=== PATIENT | male | born 1975 | race Caucasian/White ===

== ENCOUNTER 2017-05-06 16:53 | Emergency (ER) | payer BC ==
[2017-05-06] MEDS ORDERED: MORPHINE IV ONE ×2 (17:03→18:08)
[2017-05-06] MEDS ORDERED: ZOFRAN IV ONE (17:04)
[2017-05-06 17:39] LABS: Hematocrit 44.3 % (35.5-45.6); Hemoglobin 15.1 gm/dl (11.8-15.2); Mean Corpuscular HGB Conc 34 % (32-34); Mean Corpuscular Hemoglobin 37 pg (28-32); Mean Corpuscular Volume 110 fl (84-94); Red Blood Count 4.03 M/mm3 (3.65-5.03); Red Cell Distribution Width 14.3 % (13.2-15.2)
[2017-05-06 18:03] LABS: Alanine Aminotransferase 34 units/L (7-56); Albumin 3.5 g/dL (3.9-5); BUN/Creatinine Ratio 34; Blood Urea Nitrogen 17 mg/dL (9-20); Calcium 8.1 mg/dL (8.4-10.2); Hemolysis Index 56
[2017-05-06 18:51] LABS: Basophils % (Manual) 0 % (0.0-1.8); Total Cells Counted 100
[2017-05-06 18:52] LABS: Anisocytosis 1+; Macrocytosis Few; Ovalocytes Rare; Platelet Estimate Appears Decreased
--- NOTE | 2017-05-06 19:05 | Cat Scan Report ---
FINAL REPORT EXAM: CT ABDOMEN PELVIS W CON HISTORY: r/o appy, pain TECHNIQUE: CT examination of the ABDOMEN after IV contrast CT examination of the PELVIS after IV contrast PRIORS: None. FINDINGS: Diffusely nodular liver capsule may be secondary to cirrhosis. No CT evidence of focal liver lesion although the superior liver dome is not included in these images. There are prominent esophageal varices. There is also prominence of the portal vein and evidence of varices in the gastric lesser sac region. There is recanalization of the umbilical vein. The spleen is enlarged. These findings are also compatible with cirrhosis and may reflect portal hypertension. Normal-appearing gallbladder, adrenals, and pancreas. Intact normal caliber abdominal aorta and IVC. Normal-appearing kidneys and ureters. Very small fat containing umbilical hernia. No small bowel distention in the abdomen and pelvis. There is minimal prominence of mural thickness in the stomach and small bowel diffusely. This may be secondary to mild edema. No definite anasarca. Trace ascites adjacent to the gallbladder fossa. Differential includes pericholecystic fluid from inflammatory change. No pelvic free fluid. Normal-appearing urinary bladder, prostate, seminal vesicles, and rectum. Minimal sigmoid diverticulosis without acute inflammation. No gross ascites, free air, or colonic distention. Normal-appearing cecum and terminal ileum. Small diverticulum in the anterior cecum. Appendix not definitively manifest. No pericecal inflammation. Slight degenerative change in the regional skeleton. Limbus vertebral body at the anterosuperior corner of L5, likely developmental variation. The differential includes remote trauma. IMPRESSION: Findings suggestive of cirrhosis include nodular liver capsule, gastric varices, esophageal varices, recanalization of the umbilical vein, and splenomegaly Trace fluid adjacent the gallbladder may be minimal ascites. The differential includes pericholecystic fluid from mild cholecystitis although gallbladder wall thickness is normal. Slight diffuse mural thickening in the stomach and small bowel may be secondary to mild edema Minimal sigmoid and cecal diverticulosis
[2017-05-06 19:13] LABS: Platelet Count 50 K/mm3 (140-440)
--- NOTE | 2017-05-07 02:25 | Emergency Department Report ---
ED Abdominal Pain HPI - General Chief Complaint: Abdominal Pain Stated Complaint: ABD PN Time Seen by Provider: 05/07/17 02:08 Source: patient, family Mode of arrival: Stretcher Limitations: Language Barrier - History of Present Illness Initial Comments: Patient is a 5-year-old female who is presenting with abdominal pain. Patient states approximately 10 AM yesterday he began having epigastric and right sided abdominal pain. He went to urgent care visits him here to be evaluated for appendicitis. Patient states he's had several episodes of nausea and vomiting with no diarrhea. Patient denies fever chills patient does have a history of cirrhosis and feels as though his eyes is slightly more yellow than normal. Patient rates the abdominal pain as sharp and crampy achy there is no radiation of the pain. Nothing makes it better and nothing makes it worse. Severity scale (0 -10): 10 Associated Symptoms: denies: diarrhea, fever, constipation, dysuria, hematemesis , hematochezia, melena, hematuria, anorexia, syncope - Related Data Home Medications Medication Instructions Recorded Confirmed Last Taken Imuran 100 mg PO DAILY 02/23/17 02/23/17 02/22/17 Previous Rx's Medication Instructions Recorded Last Taken Type Ciprofloxacin HCl [Cipro] 500 mg PO BID #14 tablet 05/07/17 Unknown Rx Ondansetron [Zofran Odt] 4 mg PO Q8HR #10 tab.rapdis 05/07/17 Unknown Rx traMADol [Ultram] 50 mg PO Q4HR PRN #20 tablet 05/07/17 Unknown Rx Allergies Allergy/AdvReac Type Severity Reaction Status Date / Time No Known Allergies Allergy Verified 03/19/14 11:16 ED Review of Systems ROS: Stated complaint: ABD PN Other details as noted in HPI Comment: All other systems reviewed and negative ED Past Medical Hx - Past Medical History Hx Liver Disease: Yes Hx Asthma: No Hx COPD: No Hx HIV: No Additional medical history: Cirrhosis - Surgical History Past Surgical History?: No - Social History Smoking Status: Never Smoker Substance Use Type: None - Medications Home Medications: Home Medications Medication Instructions Recorded Confirmed Last Taken Type Imuran 100 mg PO DAILY 02/23/17 02/23/17 02/22/17 History Ciprofloxacin HCl [Cipro] 500 mg PO BID #14 tablet 05/07/17 Unknown Rx Ondansetron [Zofran Odt] 4 mg PO Q8HR #10 tab.rapdis 05/07/17 Unknown Rx traMADol [Ultram] 50 mg PO Q4HR PRN #20 tablet 05/07/17 Unknown Rx ED Physical Exam - General Limitations: Language Barrier General appearance: alert, in no apparent distress - Head Head exam: Present: atraumatic, normocephalic - Eye Eye exam: Present: scleral icterus - ENT ENT exam: Present: mucous membranes moist - Neck Neck exam: Present: normal inspection - Respiratory Respiratory exam: Present: normal lung sounds bilaterally. Absent: respiratory distress, wheezes, rales, rhonchi - Cardiovascular Cardiovascular Exam: Present: regular rate, normal rhythm. Absent: systolic murmur, diastolic murmur, rubs, gallop - GI/Abdominal GI/Abdominal exam: Present: soft, tenderness (mild tenderness in the epigastrium and right lower quadrant without rebound), normal bowel sounds. Absent: distended, guarding, rebound, rigid - Rectal Rectal exam: Present: deferred - Extremities Exam Extremities exam: Present: normal inspection - Back Exam Back exam: Present: normal inspection - Neurological Exam Neurological exam: Present: alert, oriented X3 - Psychiatric Psychiatric exam: Present: normal affect, normal mood - Skin Skin exam: Present: warm, dry, intact, normal color. Absent: rash ED Course Vital Signs 05/06/17 05/06/17 05/07/17 16:54 18:40 01:33 Temperature 96.9 F L Pulse Rate 91 H 103 H Respiratory 20 16 Rate Blood Pressure 139/72 136/78 Blood Pressure [Left] O2 Sat by Pulse 100 98 Oximetry 05/07/17 05/07/17 05/07/17 01:56 02:39 02:44 Temperature 98.7 F Pulse Rate 74 96 H Respiratory 16 Rate Blood Pressure 151/88 Blood Pressure 132/74 [Left] O2 Sat by Pulse 100 97 97 Oximetry 05/07/17 05/07/17 05/07/17 02:45 02:52 03:00 Temperature Pulse Rate Respiratory 16 Rate Blood Pressure 128/71 129/72 Blood Pressure [Left] O2 Sat by Pulse 96 97 Oximetry 05/07/17 05/07/17 05/07/17 03:15 03:30 03:45 Temperature Pulse Rate Respiratory Rate Blood Pressure 127/71 130/73 117/63 Blood Pressure [Left] O2 Sat by Pulse 96 94 95 Oximetry 05/07/17 05/07/17 05/07/17 04:00 04:15 04:30 Temperature Pulse Rate Respiratory Rate Blood Pressure 120/66 114/69 118/63 Blood Pressure [Left] O2 Sat by Pulse 95 94 95 Oximetry 05/07/17 05/07/17 04:45 05:00 Temperature Pulse Rate Respiratory Rate Blood Pressure 124/61 112/64 Blood Pressure [Left] O2 Sat by Pulse 92 94 Oximetry ED Medical Decision Making - Lab Data Result diagrams: 05/06/17 17:20 05/06/17 17:20 - Radiology Data Radiology results: report reviewed CT abdomen and pelvis with contrast showed findings suggestive of cirrhosis including a nodular liver capsule gastric varices esophageal varices and splenomegaly. Social trace fluid adjacent to the gallbladder may be minimal ascites however pericholecystic fluid for mild cholecystitis could not be excluded. Slight diffuse mural thickening of the stomach and small bowel may be secondary to mild edema. There is minimal sigmoid cecal diverticulosis Ultrasound of the gallbladder shows slight thickening of the gallbladder wall 4.7 mm the gallbladder lumen appears normal with no stone formation, bile duct is normal as well. - Medical Decision Making Patient is a 41-year-old male who is presenting with right-sided abdominal pain. Patient has a history of cirrhosis and does have some mild ascites present however there is also some mild thickening of the gallbladder wall. Patient has a slight increase in his white count and this could be a very early cholecystitis. Dr. Scott with surgery was consulted and states that the patient since he is stable could be sent home with Cipro pain control and nausea control and can follow-up with him in several days. Critical care attestation.: If time is entered above; I have spent that time in minutes in the direct care of this critically ill patient, excluding procedure time. ED Disposition Clinical Impression: Cholecystitis without calculus Cirrhosis Qualifiers: Hepatic cirrhosis type: unspecified biliary cirrhosis Qualified Code(s): K74.5 - Biliary cirrhosis, unspecified Disposition: DC-01 TO HOME OR SELFCARE Is pt being admited?: No Does the pt Need Aspirin: No Condition: Stable Instructions: Cholecystitis (ED), Cirrhosis (ED) Prescriptions: Ciprofloxacin HCl [Cipro] 500 mg PO BID #14 tablet Ondansetron [Zofran Odt] 4 mg PO Q8HR #10 tab.rapdis traMADol [Ultram] 50 mg PO Q4HR PRN #20 tablet PRN Reason: Pain Referrals: LIAM SCOTT MD [Staff Physician] - 05/09/17
[2017-05-07] MEDS ORDERED: ZOFRAN IV ONE (02:27)
[2017-05-07] MEDS ORDERED: MORPHINE IV ONE (02:27)
[2017-05-07] MEDS ORDERED: NACL 0.9% 1000 ML 1,000 ML IV ONE (02:28)
--- NOTE | 2017-05-07 03:29 | Ultrasound Report ---
FINAL REPORT PROCEDURE: US ABDOMEN LIMITED TECHNIQUE: Real-time sonography was performed of the gallbladder with image documentation. CPT 00540 HISTORY: right sided abd pain r/o cholecystitis COMPARISON: No prior studies are available for comparison. FINDINGS: The gallbladder lumen is normal. The gallbladder wall thickness is 4.7 millimeters. Common bile duct measures 3.8 millimeters. No stones are identified. The portions of the liver, right kidney and pancreas imaged are normal.. IMPRESSION: There is slight thickening of the gallbladder wall. The gallbladder lumen is normal with no stone formation. The common bile duct is normal.
[2017-05-07 05:54] VITALS: BP 119/67
== END 2017-05-07 05:52 | disposition home or self-care (01) ==
LOC: ED 16:53
DX: K80.00 Calculus of gallbladder with acute cholecystitis without obstruction (principal); K74.5 Biliary cirrhosis, unspecified
CPT/HCPCS: 36415; 74177; 76705; 80053; 85007; 85025; 96361; 96374; 96375; 96376; 99284; J2270; J2405; J7030; Q9967